=== PATIENT | female | born 1960 | race Caucasian/White ===

== ENCOUNTER → 2018-06-10 | Outpatient (CLI) | payer OTHER ==
[2018-06-10 13:29] LABS: HCT 44.7 % (34.0-46.0); HGB 15.1 gm/dL (11.4-16.0); MCH 30.5 pg (25.0-35.0); MCHC 33.7 g/dL (31.0-37.0); MCV 90.6 fL (80.0-100.0); Mean Platelet Volume 10.3; Platelet Count 162 k/uL (150-450); RBC 4.94 m/uL (3.80-5.40); RDW 12.9 % (11.5-15.5); WBC 8.5 k/uL (3.8-10.6)
[2018-06-10 13:37] LABS: Anion Gap 8 mmol/L; Blood Urea Nitrogen 20 mg/dL (7-17); Carbon Dioxide 28 mmol/L (22-30); Chloride 102 mmol/L (98-107); Potassium 4.7 mmol/L (3.5-5.1); Sodium 138 mmol/L (137-145)
== END | disposition home or self-care (01) ==
LOC: LABPAT 12:27
PROVIDERS: ATTEND Internal Medicine Interventional Cardiology
DX: Z01.812 Encounter for preprocedural laboratory examination (principal); I35.0 Nonrheumatic aortic (valve) stenosis
CPT/HCPCS: 36415; 80051; 82565; 84520; 85027

== ENCOUNTER 2018-06-16 05:40 | Day surgery (SDC) | payer OTHER ==
[2018-06-11 15:56] VITALS: BMI 31.9
[2018-06-16] MEDS ORDERED: ASPIRIN 325 MG TAB PO STA (05:47)
[2018-06-16] MEDS ORDERED: NITROGLYCERIN SL TABS 0.4 MG TAB SUBLINGUAL PRN (05:47)
[2018-06-16] MEDS ORDERED: SODIUM CHLORIDE 0.9% 1,000 ML in EMPTY BAG 1 BAG IV ONE (05:47)
[2018-06-16] MEDS ORDERED: ALPRAZolam 0.25 MG TAB PO PRN (05:47)
[2018-06-16 06:31] VITALS: TEMP 98.1
[2018-06-16] MEDS ORDERED: SODIUM CHLORIDE 0.9% 1,000 ML IV ONE ×3 (06:36→14:47)
[2018-06-16] MEDS ORDERED: fentaNYL (PF) 50 MCG/ML 2 ML AMP ONE (06:49)
[2018-06-16] MEDS ORDERED: MIDAZOLAM 2 MG/2 ML VIAL ONE (06:50)
[2018-06-16] MEDS ORDERED: SODIUM CHLORIDE 0.9% 500 ML IV ONE (07:05)
[2018-06-16] MEDS: BENZOCAINE SPRAY 1 CAN MUCOUS MEM ONE ×2 (07:10→07:13)
[2018-06-16] MEDS: fentaNYL (PF) 50 MCG/ML 2 ML AMP IVP ONE ×2 (07:12→07:15)
[2018-06-16] MEDS: MIDAZOLAM 2 MG/2 ML VIAL IVP ONE ×2 (07:12→07:15)
[2018-06-16] MEDS ORDERED: LIDOCAINE 1% INJ 10MG/ML (20 ML MDV) ONE (07:16)
--- NOTE | 2018-06-16 08:02 | ECHOT ---
TRANSESOPHAGEAL ECHOCARDIOGRAM INDICATION: Evaluation of aortic valve. PROCEDURE: After explaining the procedure to the patient, its risks and the complications, her blood pressure, heart rate, O2 saturation was monitored. The throat was sprayed with Cetacaine. She received 2 mg of intravenous Versed and 50 mcg intravenous fentanyl. The probe was introduced into the esophagus without difficulty. Images were obtained. Following that the probe was removed. There was no immediate complication. FINDINGS: Left atrial size is normal. Left atrial appendage is normal size. Left ventricular size and systolic function normal. The aortic valve is a probable tricuspid valve with severe fibrocalcific changes and calcification with reduced opening. By planimetry the valve area is 0.9 centimeters square. The mitral valve and tricuspid valve appear to be normal. Descending thoracic aorta appears to be normal. Contrast bubble study revealed no shunting across the interatrial septum with Valsalva maneuver. No pericardial effusion was noted. Doppler pulse wave and color Doppler obtained and revealed mild to moderate mitral with mild tricuspid regurgitation. There was inability to obtain an accurate measurement of the gradient across the aortic valve. CONCLUSION: 1. Normal left ventricular size and systolic function. 2. Severe aortic stenosis with severe calcification. 3. Mild to moderate mitral with mild tricuspid regurgitation. 4. Normal appearance of the descending thoracic aorta. 5. No evidence of shunting across the interatrial septum. MMODL / IJN: [id number] / LEROY
[2018-06-16] MEDS ORDERED: fentaNYL (PF) 50 MCG/ML 2 ML AMP IV ONE (12:49)
[2018-06-16] MEDS ORDERED: diphenhydrAMINE 50 MG/ML 1 ML VIAL IVP ONE (12:49)
[2018-06-16] MEDS ORDERED: LIDOCAINE 1% INJ 10MG/ML (20 ML MDV) SQ ONE (12:49)
[2018-06-16] MEDS ORDERED: IV FLUID CONTINUATION 300 ML IV ONE (12:50)
[2018-06-16] MEDS ORDERED: LIDOCAINE 2% SYG (PF) 100 MG/5 ML MISCELLANE ONE (12:52)
[2018-06-16] MEDS ORDERED: MIDAZOLAM 2 MG/2 ML VIAL IV ONE (12:54)
[2018-06-16 13:09] LABS: O2 Sat Blood Gas 92.4 %
[2018-06-16 13:11] LABS: O2 Sat Blood Gas 71.1 %
[2018-06-16 13:13] LABS: O2 Sat Blood Gas 71.5 %
[2018-06-16] MEDS ORDERED: IOPAMIDOL-370 100ML BTL INJ ONE (13:18)
[2018-06-16] MEDS ORDERED: IOPAMIDOL-370 125ML BTL INJ ONE (13:18)
[2018-06-16] MEDS ORDERED: RX INFO: IV CONTRAST WAS GIVEN 1 EACH MISC MISCELLANE PRN (13:33)
[2018-06-16] MEDS ORDERED: SODIUM CHLORIDE 0.9% 1,000 ML IV SCH (13:45)
--- NOTE | 2018-06-16 17:27 | CC ---
CARDIAC CATHETERIZATION REPORT Mrs. Huitron is a 58-year-old female who is followed by Dr. Goyal, has a history of aortic valve disease with aortic stenosis who has been complaining of progressive episodes of chest discomfort and had evidence of progression of her gradient on the transthoracic echocardiogram consistent with severe aortic stenosis. In view of that, recommendation was made regarding cardiac catheterization. The procedures, risks and complication were discussed with the patient who is in full understanding and agreement. PROCEDURE: Patient was brought to the labor relations representative in a fasting semi-sedated state after receiving fentanyl and Benadryl and achieving moderate conscious sedated state. Using Xylocaine anesthesia in the Seldinger technique, a 6-Lao sheath was introduced in the right femoral artery and an 8-Lao sheath in the right femoral vein. Right heart catheterization was performed using Warren-Murphy catheter. Multiple pressure and samples were obtained. Cardiac output by thermodilution was calculated. Following that, selective right and left angiography performed with 6-Lao 4 bend right and left Hany catheter. Multiple views of the coronary artery including hemiaxial views obtained. Following that the 6-Lao right Hany catheter was used to cross the aortic valve and exchanged to a pigtail catheter and subsequently in MENENDEZ view of the left ventricle and an FRISIAN view of the ascending aorta was performed. Following that catheter and sheaths were removed. Hemostasis was obtained with deployment of an Angio- Seal in the right femoral artery and compression of the right femoral vein. The patient was returned to room in stable condition. FINDINGS: HEMODYNAMICS: Right atrial saturation 72%, pulmonary artery saturation 71%. Femoral artery saturation of 92%. Cardiac output by thermodilution 3.7 L/minute and by Miguel 4.1 L/minute. The aortic valve area of 0.8 cm2. The pulmonary artery systolic pressure 44 with a diastolic of 14 and a mean of 25 mmHg. Pulmonary capillary wedge pressure A-wave of 16, V-wave of 15 with a mean of 14 mmHg. Right ventricle systolic pressure of 45 with an end-diastolic off 8. Right atrial A-wave of 12 with a V-wave of 10 mmHg and a mean of 9 mmHg. Her left ventricular systolic pressure off 200 mmHg with a left ventricular end-diastolic pressure off 20-24 mmHg. Ascending aortic pressure of 155 to 160 mmHg with a peak gradient of 40 mmHg. FLUOROSCOPY: There was severe calcification involving the aortic valve. CORONARIES: The left Main: This is a large-sized vessel trifurcating left circumflex, left anterior descending artery and ramus intermedius. Left main coronary artery has no evidence of high-grade stenosis. Left Anterior Descending Artery: This is a large-sized vessel reaching to the apex with a wraparound apex segment. The left anterior descending artery has 40% to 50% plaque in the mid segment. The rest of the vessel has no high-grade stenosis. Left Circumflex: This is a nondominant vessel giving rise to 2 obtuse marginal branch. The left circumflex this was branches have no evidence of obstructive disease. Ramus Intermedius: This is a large-sized vessel reaching toward the apical lateral wall. The ramus intermedius has no evidence of high-grade stenosis. Right Coronary Artery: This is a large dominant vessel bifurcating into PDA and posterolateral segment and branches. The right coronary artery as well as branches have no evidence of obstructive disease. Left Ventriculogram: Left ventriculogram is performed in 30 degree MENENDEZ view and revealed normal left ventricular size and systolic function. Ejection fraction 60%. There was no significant mitral regurgitation. AORTOGRAM: Aortogram was performed in the FRISIAN view and revealed a calcified aortic valve with 1+ aortic regurgitation and the appearance of a tricuspid valve. CONCLUSION: 1. Mild disease involving the LAD. 2. Severe critical aortic stenosis. 3. Mild pulmonary hypertension. 4. Normal left ventricular size and systolic function. 5. Normal appearance of the ascending aorta. RECOMMENDATION: In view of finding anatomy I recommend proceeding with evaluation for aortic valve replacement. The rationale behind the recommendation as well as the findings were discussed with the patient and her family who are in understanding and agreement. Duration procedure is 32 minutes. MMODL / IJN: [id number] /
[2018-06-16 19:20] VITALS: RESP 16
[2018-06-16 19:22] VITALS: BP 128/71; PULSE 65
[2018-06-17] MEDS ORDERED: ASPIRIN 81 MG PO SCH (09:00)
[2018-06-17] MEDS ORDERED: ATORVASTATIN 20 MG TAB PO SCH (09:00)
== END 2018-06-16 20:21 | disposition home or self-care (01) ==
LOC: CATHCVL 05:40 → 3OBS 13:20 → CATHCVL 20:21
PROVIDERS: ATTEND Internal Medicine Interventional Cardiology
DX: I08.3 Combined rheumatic disorders of mitral, aortic and tricuspid valves (principal); I25.10 Atherosclerotic heart disease of native coronary artery without angina pectoris; I27.20 Pulmonary hypertension, unspecified; I65.29 Occlusion and stenosis of unspecified carotid artery; D69.3 Immune thrombocytopenic purpura; Z82.49 Family history of ischemic heart disease and other diseases of the circulatory system; Z79.899 Other long term (current) drug therapy; Z88.6 Allergy status to analgesic agent; Z88.1 Allergy status to other antibiotic agents; Z88.0 Allergy status to penicillin; Z88.2 Allergy status to sulfonamides; Z88.8 Allergy status to other drugs, medicaments and biological substances
CPT/HCPCS: 93312; 93320; 93325; 93453; 85018; 82810; C1769 ×3; C1760; C1894 ×2; J2250; J1200; J2001 ×2; J3010; Q9967 ×2; 93460

== ENCOUNTER 2018-09-01 02:58 | Emergency (ER) | payer OTHER ==
[2018-09-01 03:05] VITALS: TEMP 97.5
[2018-09-01 04:02] LABS: Basophils # (A) 0.1 k/uL (0-0.2); Basophils % (A) 1 %; Eosinophils # (A) 0.2 k/uL (0-0.7); Eosinophils % (A) 1 %; HCT 35.7 % (34.0-46.0); HGB 11.7 gm/dL (11.4-16.0); Hypochromasia Slight; Lymphocytes # (A) 1.7 k/uL (1.0-4.8); Lymphocytes % (A) 16 %; MCH 30.8 pg (25.0-35.0); MCHC 32.7 g/dL (31.0-37.0); MCV 94.5 fL (80.0-100.0); Mean Platelet Volume 9.8; Monocytes # (A) 0.5 k/uL (0-1.0); Monocytes % (A) 5 %; Neutrophils # (A) 8.2 k/uL (1.3-7.7); Neutrophils % (A) 76 %; Platelet Count 177 k/uL (150-450); Poikilocytosis Slight; RBC 3.78 m/uL (3.80-5.40); WBC 10.8 k/uL (3.8-10.6)
[2018-09-01 04:24] LABS: INR 1.2 (<1.2); Partial Thromboplastin Time 23.7 sec (22.0-30.0); Prothrombin Time 11.3 sec (9.0-12.0)
--- NOTE | 2018-09-01 04:24 | XR ---
PROCEDURE: FILM CXR 1 VIEW HISTORY: 58-year-old female with chest pain. COMPARISON: Chest radiograph 04/19/2015 TECHNIQUE: Frontal view of the chest was obtained. FINDINGS: Limited by technique. Cardiomediastinal silhouette is stable. Right pleural effusion. Right basilar atelectasis/consolidation. Bilateral perihilar platelike atelectasis. Postoperative changes of median sternotomy. Degenerative changes in the spine. IMPRESSION: Right pleural effusion. Right basilar atelectasis/consolidation.
[2018-09-01 04:25] LABS: ALT 81 U/L (9-52); AST 63 U/L (14-36); Albumin 3.4 g/dL (3.5-5.0); Alkaline Phosphatase 130 U/L (38-126); Anion Gap 10 mmol/L; Blood Urea Nitrogen 21 mg/dL (7-17); Calcium 9.1 mg/dL (8.4-10.2); Carbon Dioxide 22 mmol/L (22-30); Chloride 102 mmol/L (98-107); Glucose 161 mg/dL (74-99); Magnesium 2.1 mg/dL (1.6-2.3); Potassium 4.7 mmol/L (3.5-5.1); Sodium 134 mmol/L (137-145); Total Bilirubin 0.5 mg/dL (0.2-1.3); Total Protein 6.3 g/dL (6.3-8.2)
[2018-09-01 04:34] LABS: Creatine Kinase MB 0.3 ng/mL (0.0-2.4)
[2018-09-01 04:47] LABS: Troponin I 0.058 ng/mL (0.000-0.034)
[2018-09-01] MEDS ORDERED: ENOXAPARIN 80 MG/0.8 ML SYRINGE SQ STA (06:31)
--- NOTE | 2018-09-01 07:28 | ED ---
Chest Pain HPI - General Chief Complaint: Chest Pain Stated Complaint: Chest Pain Time Seen by Provider: 09/01/18 03:24 Source: patient, EMS Mode of arrival: EMS Limitations: no limitations - History of Present Illness Initial Comments: This patient is a 58-year-old woman who did have recent open-heart surgery with Dr. Cardona, presents to be evaluated for pain to the posterior aspect of her left arm. The patient indicates the area of the left tricep, and does note that there is a bruise there, but she does not remember any trauma. She states that given the recent surgery she wanted to be extra cautious. She is not having any dyspnea, nausea or vomiting, or other anginal symptoms. MD Complaint: other (left arm pain) -: minutes(s) Onset: during rest Pain Location: other (Left arm pain) Pain Radiation: none Quality: dull Consistency: constant Improves With: nothing Worsens With: nothing Context: recent surgery Treatments Prior to Arrival: none - Related Data Home Medications Medication Instructions Recorded Confirmed No Known Home Medications 06/11/18 06/11/18 Allergies Allergy/AdvReac Type Severity Reaction Status Date / Time cephalexin [Cephalexin] Allergy Rash/Hives Verified 09/01/18 03:05 erythromycin base Allergy Rash/Hives Verified 09/01/18 03:05 methylprednisolone Allergy Rash/Hives Verified 09/01/18 03:05 [From Medrol] Sulfa (Sulfonamide Allergy Rash/Hives Verified 09/01/18 03:05 Antibiotics) sulfamethoxazole Allergy Rash/Hives Verified 09/01/18 03:05 [From Bactrim] trimethoprim [From Bactrim] Allergy Rash/Hives Verified 09/01/18 03:05 aspirin AdvReac HX LOW Verified 09/01/18 03:05 PLATELETS Review of Systems ROS Statement: Those systems with pertinent positive or pertinent negative responses have been documented in the HPI. ROS Other: All systems not noted in ROS Statement are negative. Constitutional: Denies: fever, chills, weakness Respiratory: Denies: cough, dyspnea Cardiovascular: Reports: as per HPI. Denies: chest pain, palpitations, orthopnea, edema, syncope Genitourinary: Denies: dysuria, hematuria Musculoskeletal: Denies: back pain Skin: Denies: rash, lesions Neurological: Denies: headache, weakness, numbness EKG Findings - EKG Results: EKG: interpreted by IGNACIO, sinus rhythm (Rate 64 bpm), normal axis, normal QRS, normal ST/T, no acute changes Past Medical History Past Medical History: Atrial Fibrillation Additional Past Medical History / Comment(s): THROMBOCYTOPENIA History of Any Multi-Drug Resistant Organisms: None Reported Past Surgical History: Coronary Bypass/CABG, Heart Catheterization Additional Past Surgical History / Comment(s): RT SHOULDER ROT CUFF REPAIR AND MANIPULATION SURGERY OF RT SHOULDER, HX OF CLARA, MELECIO CARPAL TUNNEL, Past Anesthesia/Blood Transfusion Reactions: Motion Sickness Additional Past Anesthesia/Blood Transfusion Reaction / Comment(s): STATES "TAKES A LONG TIME TO WAKE UP FROM ANESTHESIA" Past Psychological History: No Psychological Hx Reported Smoking Status: Never smoker Past Alcohol Use History: None Reported Past Drug Use History: None Reported - Past Family History Father Family Medical History: Cancer Additional Family Medical History / Comment(s): SKIN CA General Exam Limitations: no limitations General appearance: alert, in no apparent distress Head exam: Present: atraumatic, normocephalic Eye exam: Present: normal appearance. Absent: scleral icterus, conjunctival injection Neck exam: Present: normal inspection, full ROM Respiratory exam: Present: normal lung sounds bilaterally. Absent: respiratory distress, wheezes, rales, rhonchi, stridor Cardiovascular Exam: Present: regular rate, normal rhythm, normal heart sounds. Absent: systolic murmur, diastolic murmur, rubs, gallop GI/Abdominal exam: Present: soft. Absent: distended, tenderness, guarding, rebound, rigid Extremities exam: Present: full ROM, tenderness (Patient does have contusion and tenderness to the area of the left tricep where she is indicating pain is), normal capillary refill. Absent: pedal edema Back exam: Present: normal inspection. Absent: CVA tenderness (R), CVA tenderness (L) Neurological exam: Present: alert Skin exam: Present: warm, dry, intact, normal color, other (Decision). Absent: rash Course Vital Signs 09/01/18 09/01/18 09/01/18 03:00 04:44 05:39 Temperature 97.5 F L Pulse Rate 64 62 63 Respiratory 20 17 18 Rate Blood Pressure 118/53 107/54 104/52 O2 Sat by Pulse 96 98 95 Oximetry 09/01/18 09/01/18 07:02 08:42 Temperature Pulse Rate 66 81 Respiratory 18 16 Rate Blood Pressure 111/57 124/66 O2 Sat by Pulse 95 98 Oximetry Chest Pain MDM - MDM I did discuss the case with Dr. Cardona's service and they will see the patient here in emergency department. Disposition Clinical Impression: Contusion Disposition: HOME SELF-CARE Condition: Good Instructions: Chest Pain (ED), Contusion in Adults (ED) Is patient prescribed a controlled substance at d/c from ED?: No Referrals: Clara Chavez III, MD [Primary Care Provider] - 1-2 days Scooter Cardona MD [STAFF PHYSICIAN] - 1-2 days
[2018-09-01 08:43] VITALS: BP 124/66; PULSE 81; RESP 16
== END 2018-09-01 08:42 | disposition home or self-care (01) ==
LOC: EC 02:58
DX: L76.82 Other postprocedural complications of skin and subcutaneous tissue (principal); I48.91 Unspecified atrial fibrillation; Z53.8 Procedure and treatment not carried out for other reasons; Z88.6 Allergy status to analgesic agent; Z88.1 Allergy status to other antibiotic agents; Z88.2 Allergy status to sulfonamides; Z88.8 Allergy status to other drugs, medicaments and biological substances; Z95.5 Presence of coronary angioplasty implant and graft; Z95.1 Presence of aortocoronary bypass graft; Y83.8 Other surgical procedures as the cause of abnormal reaction of the patient, or of later complication, without mention of misadventure at the time of the procedure
CPT/HCPCS: 36415; 71045; 80053; 82550; 82553; 83735; 84484; 85025; 85610; 85730; 93005; 99285

== ENCOUNTER → 2018-09-08 | Outpatient (CLI) | payer OTHER ==
--- NOTE | 2018-09-08 09:44 | US ---
EXAMINATION TYPE: US abdomen complete DATE OF EXAM: 09/08/2018 COMPARISON: NONE CLINICAL HISTORY: R10.9 Abdominal Pain. Pt recently had CABG, is now having generalized ABD pain all over, loss of appetite EXAM MEASUREMENTS: Liver Length: 17.1 cm Gallbladder Wall: 0.2 cm CBD: 0.6 cm Spleen: 10.3 cm Right Kidney: 11.1 x 4.5 x 4.8 cm Left Kidney: 11.3 x 5.6 x 5.0 cm Limited scan pt unable to roll on sides, pt unable to tolerate much probe pressure, also unable to take a breath in and hold it Pancreas: wnl, tail obscured by overlying bowel gas Liver: There is increased echogenicity of the hepatic parenchyma with diminished visualization of th e portal triads most commonly relating to hepatic steatosis and limiting evaluation for underlying he patic masses. Gallbladder: wnl Evidence for sonographic Maldonado's sign: Pt having pain during entire exam CBD: Upper limits of normal Spleen: wnl Right Kidney: Mild cortical thinning Left Kidney: Mild cortical thinning Upper IVC: wnl Abd Aorta: wnl, distal portion gassed out PLEASE NOTE: Midline, right superficial ABD area scanned where pt is having most of her pain, no ab normality could be appreciated The intrahepatic portion of the IVC and proximal abdominal aorta are within normal limits. There is no evidence of cholelithiasis. Common bile duct is unremarkable. The visualized portions of the vee creas are homogenous. The spleen is unremarkable. Kidneys are symmetric and free of hydronephrosis. No renal lesions are seen. IMPRESSION: 1. No sonographic evidence of acute cholecystitis or cholelithiasis. No superficial abnormality in th e patient's stated region of abdominal pain. 2. Sonographic findings most commonly related to hepatic steatosis. 3. Bilateral cortical renal thinning suggestive of medical renal disease.
== END | disposition home or self-care (01) ==
LOC: RADUSWWP 07:56
PROVIDERS: ATTEND Family Medicine
DX: N28.89 Other specified disorders of kidney and ureter (principal)
CPT/HCPCS: 76700

== ENCOUNTER → 2018-10-11 | Outpatient (CLI) | payer OTHER ==
--- NOTE | 2018-10-12 15:16 | XR ---
Left humerus HISTORY: Trauma and pain 2 views of the left humerus correlated to prior left elbow 12/16/2013 Metaphyseal excrescence laterally at the distal humerus shows a stable appearance. Alignment, bone mi neralization, joint spaces are maintained. IMPRESSION: No acute fracture or dislocation. 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
== END ==
LOC: RADXRMAIN 17:32
PROVIDERS: ATTEND Nurse Practitioner Family
DX: M79.602 Pain in left arm (principal)

== ENCOUNTER → 2018-10-11 | Outpatient (CLI) | payer OTHER ==
--- NOTE | 2018-10-11 09:07 | US ---
EXAMINATION TYPE: US venous doppler duplex UE LT DATE OF EXAM: 10/11/2018 COMPARISON: NONE CLINICAL HISTORY: M76.602 Pain in Left arm. SIDE PERFORMED: Left Left Arm: Negative for DVT At the patient's area of pain, posterior left upper arm, there is a non-vascular, hyperechoic area vi sualized measuring 1.2 x 0.8 x 1.0 cm IMPRESSION: 1. No diagnostic evidence of DVT 2. The area of reported pain there is a hyperechoic 1.2 x 1.0 cm lesion too small to characterize. Ma y be related to a either a fatty replaced lymph node or small lipoma, other etiologies not excluded c orrelate clinically. This could be correlated with CT or MRI as clinically warranted.
== END | disposition home or self-care (01) ==
LOC: RADUSMAIN 07:31
PROVIDERS: ATTEND Family Medicine
DX: M79.602 Pain in left arm (principal)

== ENCOUNTER 2018-11-04 05:25 | Day surgery (SDC) | payer OTHER ==
[2018-11-02 09:30] VITALS: BMI 32.1
[~2018-11-04 05:25] MED LIST: CLINDAMYCIN 900 MG in DEXTROSE 5% IN WATER 50 ML IVPB ONE; HYDROmorphone 0.5 MG/0.5 ML SYRINGE IVP PRN; LACTATED RINGERS 1,000 ML IV SCH; MORPHINE SULFATE 2 MG/ML SYRINGE IV PRN
[2018-11-04] MEDS ORDERED: ONDANSETRON 4 MG/2 ML VIAL IVP ONE (06:30)
[2018-11-04 06:37] VITALS: TEMP 97.8
[2018-11-04] MEDS ORDERED: LIDOCAINE 1% 20 ML VIAL (10MG/ML) FOR IV START INTRADERMA ONE (06:37)
[2018-11-04] MEDS ORDERED: PROPOFOL 10 MG/ML 20 ML VIAL IV ONE (07:26)
[2018-11-04] MEDS ORDERED: MIDAZOLAM 2 MG/2 ML VIAL ONE (07:26)
[2018-11-04] MEDS ORDERED: fentaNYL (PF) 50 MCG/ML 2 ML AMP ONE (07:26)
[2018-11-04] MEDS ORDERED: BUPIVACAINE (PF) 0.25% 30 ML VIAL SQ ONE ×2 (07:39)
[2018-11-04 08:22] VITALS: BP 113/72; PULSE 60; RESP 16
== END 2018-11-04 08:45 | disposition home or self-care (01) ==
LOC: OR 05:25
PROVIDERS: ATTEND Thoracic Surgery (Cardiothoracic Vascular Surgery)
DX: T82.847A Pain due to cardiac prosthetic devices, implants and grafts, initial encounter (principal); Z95.1 Presence of aortocoronary bypass graft; I10 Essential (primary) hypertension; E78.5 Hyperlipidemia, unspecified; Z79.82 Long term (current) use of aspirin; Z79.899 Other long term (current) drug therapy; Z88.2 Allergy status to sulfonamides; Z88.1 Allergy status to other antibiotic agents; Z91.040 Latex allergy status
CPT/HCPCS: 33234; J2250; J2405; J3010; J2704

== ENCOUNTER → 2018-11-11 | Outpatient (CLI) | payer OTHER ==
--- NOTE | 2018-11-04 08:34 | P.OP ---
Date of Procedure: 11/04/18 Preoperative Diagnosis: Irritation from retained temporary pacing wire status post heart valve surgery Postoperative Diagnosis: Same with Procedure(s) Performed: Removal of temporary pacing wire Anesthesia: MAC Surgeon: Scooter Cardona Estimated Blood Loss (ml): 20 IV fluids (ml): 200 Pathology: other (Temporary pacing wire) Condition: stable Disposition: PACU Indications for Procedure: Patient is 58-year-old female who is status post valve surgery. She presents with complaints of irritation from a subcutaneous poking in the right upper quadrant of the abdomen. This is at the site of a previous temporary pacing wire. Temporary pacing wire is palpable under the skin. There is no overlying skin redness and irritation or evidence of infection. Removal was recommended. Operative Findings: Single temporary pacing wire was encountered and removed in its entirety. Description of Procedure: Patient was placed supine on the operating table. IV sedation was given. The right upper quadrant was sterilely prepped and draped. Quarter percent Sensorcaine was used to anesthetize the skin and underlying subcutaneous tissues at the area of the irritation. Incision was made and carried down through skin and subcutaneous tissue. A temporary pacemaker was easily found and removed in its entirety. Further exploration did not reveal any further foreign body present. Bleeding was not significant. The incision was closed with 4-0 Vicryl. Skin glue dressing was applied. Patient was transferred to recovery in stable condition.
[2018-11-11 12:10] LABS: Blood Urea Nitrogen 18 mg/dL (7-17)
--- NOTE | 2018-11-12 00:29 | MR ---
EXAMINATION TYPE: MR humerus LT wo/w con DATE OF EXAM: 11/11/2018 COMPARISON: None HISTORY: Localized swelling/mass, left distal humerus CONTRAST: Standard multiplanar, multisequence MRI departmental protocol utilizing 7 mL intravenous Gadavist sun olinium contrast. FINDINGS: There is no evidence of a fracture. This has fairly normal signal pattern without evidence of bone edema. There is no evidence of a soft tissue mass. There is a moderate shoulder joint effusion. There is fluid around the biceps tendon. The elbow joint has fairly normal signal pattern without evidence of any significant joint fluid. Triceps tendon is intact. The biceps tendon is intact. There appears to be a rotator cuff tear with partial retraction of the supraspinatus tendon. Shoulder joint is not entirely included on the exam. There is a marker placed over the posterior lower humerus between the middle and distal thirds in the area of concern. No discrete mass is identified. Subcutaneous fat has normal signal pattern. There i s no evidence of a mass within the muscles. IMPRESSION: No evidence of a soft tissue mass in the lower region of the humerus that was the area of concern. There is moderate shoulder joint effusion and probable large rotator cuff tear. Fluid consistent with synovitis.
== END | disposition home or self-care (01) ==
LOC: RADMRIMAIN 11:27
PROVIDERS: ATTEND Family Medicine
DX: M25.412 Effusion, left shoulder (principal)
CPT/HCPCS: 82565; 84520; 73220; 36415; A9585

== ENCOUNTER 2019-10-05 13:46 | Emergency (ER) | payer OTHER ==
[2019-10-05 13:50] VITALS: TEMP 97.4
[2019-10-05] MEDS ORDERED: PANTOPRAZOLE 40 MG/10 ML VIAL IVP STA (14:45)
[2019-10-05] MEDS ORDERED: ONDANSETRON 4 MG/2 ML VIAL IVP STA (14:45)
[2019-10-05] MEDS ORDERED: SODIUM CHLORIDE 0.9% 1,000 ML IV STA ×2 (14:45)
[2019-10-05] MEDS ORDERED: MORPHINE SULFATE 4 MG/ML SYRINGE IVP STA (15:07)
[2019-10-05 15:33] LABS: Appearance,Urine Clear (Clear); Bilirubin,Urine Negative (Negative); Blood,Urine Negative (Negative); Color,Urine Light Yellow; Glucose,Urine (UA) Negative (Negative); Ketones,Urine Negative (Negative); Leukocyte Esterase,Urine Negative (Negative); Nitrite,Urine Negative (Negative); Protein,Urine Negative (Negative); Specific Gravity,Urine 1.006 (1.001-1.035); Urobilinogen,Urine <2.0 mg/dL (<2.0)
[2019-10-05 15:39] LABS: ALT 27 U/L (9-52); AST 24 U/L (14-36); African American GFR (CKD) >90 (>60 ml/min/1.73 sqM); Albumin 4.4 g/dL (3.5-5.0); Alkaline Phosphatase 89 U/L (38-126); Amylase 66 U/L (30-110); Anion Gap 9 mmol/L; Blood Urea Nitrogen 19 mg/dL (7-17); Calcium 9.8 mg/dL (8.4-10.2); Carbon Dioxide 30 mmol/L (22-30); Chloride 102 mmol/L (98-107); Glucose 131 mg/dL (74-99); Potassium 3.9 mmol/L (3.5-5.1); Sodium 141 mmol/L (137-145); Total Bilirubin 0.6 mg/dL (0.2-1.3); Total Protein 7.2 g/dL (6.3-8.2)
--- NOTE | 2019-10-05 15:39 | ED ---
Abdominal Pain HPI - General Chief Complaint: Abdominal Pain Stated Complaint: abdominal pain Time Seen by Provider: 10/05/19 14:32 Source: patient, RN notes reviewed, old records reviewed Mode of arrival: ambulatory Limitations: no limitations - History of Present Illness Initial Comments: She has a fixed mineral female presents today for left-sided abdominal pain. She reports some intermittent abdominal pain since she had an abnormal way are within her abdomen from a cardiac surgery she reports she had the wire Mob[place] she's had intermittent pain since that time. Patient states that she hasn't had pain like this in the past 2 months. She denies any fevers or chills changes in urination or bowel habits P she denies any chest pain or shortness of breath.Patient denies any recent fever, chills, shortness of breath, chest pain, back pain, nausea vomiting, numbness or tingling, dysuria or hematuria, constipation or diarrhea, headaches or visual changes, or any other current symptoms - Related Data Home Medications Medication Instructions Recorded Confirmed Aspirin [Adult Low Dose Aspirin EC] 81 mg PO DAILY 11/02/18 11/02/18 Atorvastatin [Lipitor] 20 mg PO HS 11/02/18 11/02/18 Lisinopril [Zestril] 5 mg PO HS 11/02/18 11/02/18 Metoprolol Tartrate [Lopressor] 50 mg PO BID 11/02/18 11/02/18 Allergies Allergy/AdvReac Type Severity Reaction Status Date / Time cephalexin [Cephalexin] Allergy Rash/Hives Verified 10/05/19 13:50 erythromycin base Allergy Rash/Hives Verified 10/05/19 13:50 latex Allergy Rash/Hives Verified 10/05/19 13:50 methylprednisolone Allergy Rash/Hives Verified 10/05/19 13:50 [From Medrol] Sulfa (Sulfonamide Allergy Rash/Hives Verified 10/05/19 13:50 Antibiotics) sulfamethoxazole Allergy Rash/Hives Verified 10/05/19 13:50 [From Bactrim] trimethoprim [From Bactrim] Allergy Rash/Hives Verified 10/05/19 13:50 Review of Systems ROS Statement: Those systems with pertinent positive or pertinent negative responses have been documented in the HPI. ROS Other: All systems not noted in ROS Statement are negative. Past Medical History Past Medical History: Atrial Fibrillation Additional Past Medical History / Comment(s): THROMBOCYTOPENIA History of Any Multi-Drug Resistant Organisms: None Reported Past Surgical History: Coronary Bypass/CABG, Heart Catheterization Additional Past Surgical History / Comment(s): RT SHOULDER ROT CUFF REPAIR AND MANIPULATION SURGERY OF RT SHOULDER, HX OF CLARA, MELECIO CARPAL TUNNEL,exp lap Past Anesthesia/Blood Transfusion Reactions: Motion Sickness Additional Past Anesthesia/Blood Transfusion Reaction / Comment(s): STATES "TAKES A LONG TIME TO WAKE UP FROM ANESTHESIA" Past Psychological History: No Psychological Hx Reported Smoking Status: Never smoker Past Alcohol Use History: None Reported Past Drug Use History: None Reported - Past Family History Father Family Medical History: Cancer Additional Family Medical History / Comment(s): SKIN CA General Exam - General Exam Comments Initial Comments: Well-appearing alert and oriented 59-year-old female. No distress. General: Well appearing, well nourished, in no distress. Oriented x 3, normal mood and affect . Ambulating without difficulty. Skin: Good turgor, no rash, unusual bruising or prominent lesions Hair: Normal texture and distribution. HEENT: Head: Normocephalic, atraumatic, no visible or palpable masses, depressions, or scaring. Eyes: Visual acuity intact, conjunctiva clear, sclera non-icteric, EOM intact, PERRL. Ears: EACs clear, TMs translucent & cone of light visualized. hearing intact. Nose: No external lesions, mucosa non-inflamed, septum and turbinates normal Mouth: Mucous membranes moist, no mucosal lesions. Teeth/Gums: No obvious caries or periodontal disease. No gingival inflammation or significant resorption. Pharynx: Mucosa non-inflamed, no tonsillar hypertrophy or exudate Neck: Supple, without lesions, bruits, or adenopathy, thyroid non-enlarged and non-tender Heart: No cardiomegaly or thrills; regular rate and rhythm, no murmur or gallop Lungs: Clear to auscultation and percussion, scar from open heart surgery noted. Abdomen: Bowel sounds normal, left upper quadrant left lower quadrant tenderness. Extremities: No amputations or deformities, cyanosis, edema or varicosities, peripheral pulses intact Musculoskeletal: Normal gait and station. No misalignment, asymmetry, crepitation, defects, tenderness, masses, effusions, decreased range of motion, instability, atrophy or abnormal strength or tone in the head, neck, spine, ribs, pelvis or extremities. Neurologic: CN 2-12 normal. Sensation to pain, touch, and proprioception normal. DTRs normal in upper and lower extremities. No pathologic reflexes. Psychiatric: Oriented X3, intact recent and remote memory, judgment and insight, normal mood and affect. Limitations: no limitations Course Vital Signs 10/05/19 10/05/19 10/05/19 13:47 15:56 17:59 Temperature 97.4 F L Pulse Rate 65 56 L 67 Respiratory 20 16 20 Rate Blood Pressure 145/65 152/65 114/48 O2 Sat by Pulse 100 100 98 Oximetry Medical Decision Making - Medical Decision Making Is a 5-year-old female presents today for left-sided abdominal pain, worse for the past 3 months. At this time patient's labs are within normal limits besides platelets. EKG is normal, trop is normal. Discussed with persistent pain can check further testing including CAT scan she's had some history of chronic abdominal pain with no significant results from ultrasound other testing. Patient had CT which shows no acute process. Labs did show some mild signs of pharmacy albino. She states this is chronic and she is well aware of this. Discussed she can repeat his labs with a primary care doctor. I discussed the Patient needs to follow-up with her primary care physician. Return parameters were discussed. - Lab Data Result diagrams: 10/05/19 15:21 10/05/19 15:21 Lab Results 10/05/19 10/05/19 10/05/19 Range/Units 15:21 15:21 15:21 WBC 4.7 (3.8-10.6) k/uL RBC 4.89 (3.80-5.40) m/uL Hgb 15.1 (11.4-16.0) gm/dL Hct 43.7 (34.0-46.0) % MCV 89.2 (80.0-100.0) fL MCH 30.9 (25.0-35.0) pg MCHC 34.6 (31.0-37.0) g/dL RDW 12.3 (11.5-15.5) % Plt Count 98 L (150-450) k/uL Neutrophils % 56 % Lymphocytes % 32 % Monocytes % 6 % Eosinophils % 3 % Basophils % 1 % Neutrophils # 2.6 (1.3-7.7) k/uL Lymphocytes # 1.5 (1.0-4.8) k/uL Monocytes # 0.3 (0-1.0) k/uL Eosinophils # 0.1 (0-0.7) k/uL Basophils # 0.0 (0-0.2) k/uL Sodium 141 (137-145) mmol/L Potassium 3.9 (3.5-5.1) mmol/L Chloride 102 (98-107) mmol/L Carbon Dioxide 30 (22-30) mmol/L Anion Gap 9 mmol/L BUN 19 H (7-17) mg/dL Creatinine 0.66 (0.52-1.04) mg/dL Est GFR (CKD-EPI)AfAm >90 (>60 ml/min/1.73 sqM) Est GFR (CKD-EPI)NonAf >90 (>60 ml/min/1.73 sqM) Glucose 131 H (74-99) mg/dL Calcium 9.8 (8.4-10.2) mg/dL Total Bilirubin 0.6 (0.2-1.3) mg/dL AST 24 (14-36) U/L ALT 27 (9-52) U/L Alkaline Phosphatase 89 (38-126) U/L Troponin I (0.000-0.034) ng/mL Total Protein 7.2 (6.3-8.2) g/dL Albumin 4.4 (3.5-5.0) g/dL Amylase 66 (30-110) U/L Lipase 136 (23-300) U/L Urine Color Light Yellow Urine Appearance Clear (Clear) Urine pH 5.0 (5.0-8.0) Ur Specific [place] 1.006 (1.001-1.035) Urine Protein Negative (Negative) Urine Glucose (UA) Negative (Negative) Urine Ketones Negative (Negative) Urine Blood Negative (Negative) Urine Nitrite Negative (Negative) Urine Bilirubin Negative (Negative) Urine Urobilinogen <2.0 (<2.0) mg/dL Ur Leukocyte Esterase Negative (Negative) 10/05/19 Range/Units 15:21 WBC (3.8-10.6) k/uL RBC (3.80-5.40) m/uL Hgb (11.4-16.0) gm/dL Hct (34.0-46.0) % MCV (80.0-100.0) fL MCH (25.0-35.0) pg MCHC (31.0-37.0) g/dL RDW (11.5-15.5) % Plt Count (150-450) k/uL Neutrophils % % Lymphocytes % % Monocytes % % Eosinophils % % Basophils % % Neutrophils # (1.3-7.7) k/uL Lymphocytes # (1.0-4.8) k/uL Monocytes # (0-1.0) k/uL Eosinophils # (0-0.7) k/uL Basophils # (0-0.2) k/uL Sodium (137-145) mmol/L Potassium (3.5-5.1) mmol/L Chloride (98-107) mmol/L Carbon Dioxide (22-30) mmol/L Anion Gap mmol/L BUN (7-17) mg/dL Creatinine (0.52-1.04) mg/dL Est GFR (CKD-EPI)AfAm (>60 ml/min/1.73 sqM) Est GFR (CKD-EPI)NonAf (>60 ml/min/1.73 sqM) Glucose (74-99) mg/dL Calcium (8.4-10.2) mg/dL Total Bilirubin (0.2-1.3) mg/dL AST (14-36) U/L ALT (9-52) U/L Alkaline Phosphatase (38-126) U/L Troponin I <0.012 (0.000-0.034) ng/mL Total Protein (6.3-8.2) g/dL Albumin (3.5-5.0) g/dL Amylase (30-110) U/L Lipase (23-300) U/L Urine Color Urine Appearance (Clear) Urine pH (5.0-8.0) Ur Specific [place] (1.001-1.035) Urine Protein (Negative) Urine Glucose (UA) (Negative) Urine Ketones (Negative) Urine Blood (Negative) Urine Nitrite (Negative) Urine Bilirubin (Negative) Urine Urobilinogen (<2.0) mg/dL Ur Leukocyte Esterase (Negative) 10/05/19 17:19 EKG shows sinus rhythm, nonspecific ST and T-wave abnormality. Ventricular rate 61 bpm. Intervals 1:30 milliseconds. QRS duration 74 ms. QT QTc is 592/595 ms. - Radiology Data Radiology results: report reviewed CT is negative for any acute process.CT abdomen and pelvis shows no acute process noted. Objective bowel gas pattern. Incidentally noted hepatomegaly. Disposition Clinical Impression: Left sided abdominal pain Disposition: HOME SELF-CARE Condition: Good Instructions (If sedation given, give patient instructions): Abdominal Pain (ED) Additional Instructions: Follow-up with your primary care doctor within the next 1-2 days. Recommend rechecking platelets.. Recommended a bland diet, avoid any greasy fatty foods. Return to the emergency department if any alarming signs or symptoms occur. Is patient prescribed a controlled substance at d/c from ED?: No Referrals: Clara Chavez III, MD [Primary Care Provider] - 1-2 days Time of Disposition: 17:29
[2019-10-05 15:42] LABS: Basophils % (A) 1 %; Eosinophils # (A) 0.1 k/uL (0-0.7); Eosinophils % (A) 3 %; HCT 43.7 % (34.0-46.0); HGB 15.1 gm/dL (11.4-16.0); Lymphocytes # (A) 1.5 k/uL (1.0-4.8); Lymphocytes % (A) 32 %; MCH 30.9 pg (25.0-35.0); MCHC 34.6 g/dL (31.0-37.0); MCV 89.2 fL (80.0-100.0); Mean Platelet Volume 10.8; Monocytes # (A) 0.3 k/uL (0-1.0); Monocytes % (A) 6 %; Neutrophils # (A) 2.6 k/uL (1.3-7.7); Neutrophils % (A) 56 %; RBC 4.89 m/uL (3.80-5.40); RDW 12.3 % (11.5-15.5); WBC 4.7 k/uL (3.8-10.6)
[2019-10-05 15:57] LABS: Platelet Count 98 k/uL (150-450)
--- NOTE | 2019-10-05 15:57 | XR ---
EXAMINATION TYPE: XR KUB DATE OF EXAM: 10/05/2019 3:50 PM CLINICAL HISTORY: Left-sided abdominal pain TECHNIQUE: Single supine KUB image of the abdomen is obtained. COMPARISON: None. FINDINGS: Numerous epicardial pacing leads are incidentally seen with postoperative changes of the ch est and cardiac cranioplasty. Lung bases are well aerated. Visualized cardiomediastinal silhouette is mildly enlarged. There is also mild diffuse osseous demineralization and mild dextroscoliosis of the lumbar spine. The liver extends past the iliac crest, hepatomegaly. No dilated large or small bowel is seen. No suspicious calcifications in the abdomen. Numerous phleboliths in the pelvis. IMPRESSION: 1. Nonobstructive bowel gas pattern. 2. Incidentally noted hepatomegaly.
--- NOTE | 2019-10-05 17:04 | CT ---
EXAMINATION TYPE: CT abdomen pelvis w con DATE OF EXAM: 10/05/2019 COMPARISON: None HISTORY: LUQ pain on and off for a yr CT DLP: 915.4 mGycm CONTRAST: CT scan of the abdomen and pelvis is performed without Oral Contrast and with IV Contrast, patient in jected with 100 mL of Isovue 300. FINDINGS: LUNG BASES-: No visible nodule. No infiltrate. LIVER/GB: No calcified gallstones. No space occupying hepatic lesion. Biliary tree is of normal ca liber. PANCREAS: No inflammation. No distinct mass. SPLEEN: No splenic enlargement. No lesion seen. ADRENALS: No nodule. No thickening. KIDNEYS/BLADDER: No hydronephrosis. No nephrolithiasis. Left renal cysts noted upper pole. Extraren al pelvis bilateral kidneys. Urinary bladder grossly unremarkable. BOWEL: Normal appendix. Normal bowel caliber. No inflammation. GENITAL ORGANS: No gross abnormality. LYMPH NODES: No greater than 1cm abdominal or pelvic lymph nodes are appreciated. AORTA: No significant abnormality. OSSEOUS STRUCTURES: No significant abnormality is seen. OTHER: No significant additional abnormality is seen. IMPRESSION: 1. No acute process seen.
[2019-10-05 17:59] VITALS: BP 114/48; PULSE 67; RESP 20
== END 2019-10-05 18:09 | disposition home or self-care (01) ==
LOC: EC 13:46
DX: R10.12 Left upper quadrant pain (principal); I48.91 Unspecified atrial fibrillation; Z95.1 Presence of aortocoronary bypass graft; Z95.818 Presence of other cardiac implants and grafts; Z79.82 Long term (current) use of aspirin; Z79.899 Other long term (current) drug therapy; Z88.1 Allergy status to other antibiotic agents; Z91.040 Latex allergy status; Z88.8 Allergy status to other drugs, medicaments and biological substances; Z88.2 Allergy status to sulfonamides
CPT/HCPCS: 36415; 93005; 80053; 82150; 83690; 84484; 85025; 81003; 74018; 74177; 99285; 96374; 96375 ×2; 96361 ×2; J2270; J2405; C9113; Q9967

== ENCOUNTER 2020-05-25 10:51 | Emergency (ER) | payer OTHER ==
[2020-05-25 11:06] VITALS: TEMP 98.4
--- NOTE | 2020-05-25 11:38 | ED ---
General Adult HPI - General Chief complaint: Neck Pain/Injury Stated complaint: fell out of hammock/neck pain Time Seen by Provider: 05/25/20 11:09 Source: patient, RN notes reviewed, old records reviewed Mode of arrival: ambulatory Limitations: no limitations - History of Present Illness Initial comments: 60-year-old female presents status post fall with complaint of left shoulder pain and neck pain. Patient states she was sitting down in a hammock, fell backwards onto her neck. She states she did feel some crunching. No loss consciousness. There was minor head injury as well as injury to the left shoulder. Patient denies use of anticoagulants. Denies symptoms of numbness or tingling in her arms or legs. No other injury reported. - Related Data Home Medications Medication Instructions Recorded Confirmed Aspirin [Adult Low Dose Aspirin EC] 81 mg PO DAILY 11/02/18 11/02/18 Atorvastatin [Lipitor] 20 mg PO HS 11/02/18 11/02/18 Lisinopril [Zestril] 5 mg PO HS 11/02/18 11/02/18 Metoprolol Tartrate [Lopressor] 50 mg PO BID 11/02/18 11/02/18 Allergies Allergy/AdvReac Type Severity Reaction Status Date / Time cephalexin [Cephalexin] Allergy Rash/Hives Verified 05/25/20 11:06 erythromycin base Allergy Rash/Hives Verified 05/25/20 11:06 latex Allergy Rash/Hives Verified 05/25/20 11:06 methylprednisolone Allergy Rash/Hives Verified 05/25/20 11:06 [From Medrol] Sulfa (Sulfonamide Allergy Rash/Hives Verified 05/25/20 11:06 Antibiotics) sulfamethoxazole Allergy Rash/Hives Verified 05/25/20 11:06 [From Bactrim] trimethoprim [From Bactrim] Allergy Rash/Hives Verified 05/25/20 11:06 Review of Systems ROS Statement: Those systems with pertinent positive or pertinent negative responses have been documented in the HPI. ROS Other: All systems not noted in ROS Statement are negative. Past Medical History Past Medical History: Atrial Fibrillation Additional Past Medical History / Comment(s): THROMBOCYTOPENIA History of Any Multi-Drug Resistant Organisms: None Reported Past Surgical History: Cardiac Valve Replacement, Coronary Bypass/CABG, Heart Catheterization Additional Past Surgical History / Comment(s): RT SHOULDER ROT CUFF REPAIR AND MANIPULATION SURGERY OF RT SHOULDER, HX OF CLARA, MELECIO CARPAL TUNNEL,exp lap Past Anesthesia/Blood Transfusion Reactions: Motion Sickness Additional Past Anesthesia/Blood Transfusion Reaction / Comment(s): STATES "TAKES A LONG TIME TO WAKE UP FROM ANESTHESIA" Past Psychological History: No Psychological Hx Reported Smoking Status: Never smoker Past Alcohol Use History: None Reported Past Drug Use History: None Reported - Past Family History Father Family Medical History: Cancer Additional Family Medical History / Comment(s): SKIN CA General Exam Limitations: no limitations General appearance: alert, in no apparent distress Head exam: Present: atraumatic, normocephalic Eye exam: Present: normal appearance, PERRL ENT exam: Present: normal exam Neck exam: Present: tenderness. Absent: full ROM (Placed in a c-collar in triage) Respiratory exam: Present: normal lung sounds bilaterally. Absent: respiratory distress, wheezes Cardiovascular Exam: Present: regular rate. Absent: normal rhythm, bradycardia GI/Abdominal exam: Present: soft. Absent: distended, tenderness, guarding Extremities exam: Present: normal inspection, normal capillary refill, pedal edema Back exam: Present: normal inspection, full ROM. Absent: tenderness, paraspinal tenderness, vertebral tenderness Neurological exam: Present: alert, oriented X3, CN II-XII intact. Absent: motor sensory deficit Psychiatric exam: Present: normal affect, normal mood Skin exam: Present: warm, dry, intact Course Vital Signs 05/25/20 11:02 Temperature 98.4 F Pulse Rate 66 Respiratory 18 Rate Blood Pressure 175/74 O2 Sat by Pulse 99 Oximetry Medical Decision Making - Medical Decision Making 60-year-old female status post ground-level fall with neck pain. CT performed, showing degenerative changes at C5-C6 with no acute fracture or subluxation, no acute findings. CT brain negative for intracranial hemorrhage. I did x-ray the shoulder which is negative for acute bony abnormality. Will follow-up with her primary care physician. Disposition Clinical Impression: Strain of neck muscle, Cervical spine arthritis Disposition: HOME SELF-CARE Condition: Good Instructions (If sedation given, give patient instructions): Cervical Strain (ED) Is patient prescribed a controlled substance at d/c from ED?: No Referrals: Clara Chavez III, MD [Primary Care Provider] - 1-2 days Time of Disposition: 12:44
--- NOTE | 2020-05-25 11:58 | XR ---
EXAMINATION TYPE: XR shoulder complete LT DATE OF EXAM: 05/25/2020 COMPARISON: NONE HISTORY: Pain TECHNIQUE: Three views are submitted. FINDINGS: The osseous structures are intact. There is no acute fracture or dislocation. Diffuse osteopenia Th e AC joint is maintained. IMPRESSION: 1. AC joint arthropathy.
--- NOTE | 2020-05-25 12:34 | CT ---
EXAMINATION TYPE: CT brain cspine wo con DATE OF EXAM: 05/25/2020 COMPARISON: 03/01/2012 HISTORY: Fell out of the hammock CT DLP: 1358.5 mGycm Automated exposure control for dose reduction was used. TECHNIQUE: CT scan of the head and cervical spine are performed without contrast. FINDINGS: CT HEAD: Exam limited by artifact from the patient's c-collar. This distorts image of the posterior fossa. Mild generalized degenerative change. No diagnostic evidence of acute hemorrhage as visualized. No midline shift or mass effect. CERVICAL SPINE: Assessment spinal canal is nondiagnostic due to poor resolution and artifact. There is severe degenerative disc disease with spondylosis and spurring at C5-C6. Foraminal encroachm ent and possible canal stenosis noted. There is a 1 mm anterolisthesis of C3 on C4. There is multilev el facet arthropathy. No diagnostic evidence of acute fracture. Curvature of the cervical thoracic spine noted. Shotty adenopathy in the left carotid space. IMPRESSION: 1. There is no acute fracture or dislocation evident in the cervical spine. Severe degenerative disc disease C5-C6. 2. No acute intracranial hemorrhage, mass effect, or midline shift as seen given the limitation of th e exam.
[2020-05-25 13:06] VITALS: BP 161/70; PULSE 68; RESP 20
== END 2020-05-25 12:51 | disposition home or self-care (01) ==
LOC: EC 10:51
DX: S16.1XXA Strain of muscle, fascia and tendon at neck level, initial encounter (principal); M47.812 Spondylosis without myelopathy or radiculopathy, cervical region; I48.91 Unspecified atrial fibrillation; Z88.1 Allergy status to other antibiotic agents; Z88.2 Allergy status to sulfonamides; Z91.040 Latex allergy status; Z88.8 Allergy status to other drugs, medicaments and biological substances; Z79.82 Long term (current) use of aspirin; Z79.899 Other long term (current) drug therapy; Z95.1 Presence of aortocoronary bypass graft; Z95.2 Presence of prosthetic heart valve; W17.89XA Other fall from one level to another, initial encounter
CPT/HCPCS: 70450; 72125; 99284

== ENCOUNTER → 2020-07-18 | Outpatient (CLI) | payer SELFPAY ==
[2020-07-18 08:40] LABS: Basophils % (A) 1 %; Eosinophils # (A) 0.1 k/uL (0-0.7); Eosinophils % (A) 2 %; HCT 44.3 % (34.0-46.0); HGB 14.8 gm/dL (11.4-16.0); Lymphocytes # (A) 1.3 k/uL (1.0-4.8); Lymphocytes % (A) 29 %; MCH 30.6 pg (25.0-35.0); MCHC 33.3 g/dL (31.0-37.0); MCV 91.8 fL (80.0-100.0); Mean Platelet Volume 11.9; Monocytes # (A) 0.3 k/uL (0-1.0); Monocytes % (A) 6 %; Neutrophils # (A) 2.7 k/uL (1.3-7.7); Neutrophils % (A) 60 %; Platelet Count 103 k/uL (150-450); RBC 4.83 m/uL (3.80-5.40); RDW 12.8 % (11.5-15.5); WBC 4.5 k/uL (3.8-10.6)
[2020-07-18 08:52] LABS: Large Platelets Present
[2020-07-18 15:37] LABS: % Iron Saturation 25.96 (12.00-45.00); African American GFR (CKD) 107.6 (60.0-200.0); Albumin 4.4 g/dL (3.80-4.90); Albumin/Globulin Ratio 1.91 (1.60-3.17); Anion Gap 6.6 mmol/L (4.00-12.00); BUN/Creat Ratio 21.43 Ratio (12.00-20.00); Calcium 9.7 mg/dL (8.7-10.3); Carbon Dioxide 28.4 mmol/L (21.6-31.8); Chol/HDL Ratio 4.95; Globulin 2.3 g/dL (1.6-3.3); LDL Cholesterol,Calculated 134.2 mg/dL (0.0-131.0); Magnesium 1.9 mg/dL (1.5-2.4); Non-African American GFR(CKD) 92.9 (60.0-200.0); Potassium 4.1 mmol/L (3.5-5.5); Total Protein 6.7 g/dL (6.2-8.2); VLDL Calculation 31.8 mg/dL (5.00-40.00)
[2020-07-18 16:13] LABS: Ferritin 354.2 ng/mL (10.0-291.0)
== END | disposition home or self-care (01) ==
LOC: LABWHC1 07:32
PROVIDERS: ATTEND Family Medicine
DX: Z00.00 Encounter for general adult medical examination without abnormal findings (principal); R10.9 Unspecified abdominal pain; R16.0 Hepatomegaly, not elsewhere classified; R73.03 Prediabetes; R79.0 Abnormal level of blood mineral
CPT/HCPCS: 36415; 80053; 80061; 82550; 82728; 83036; 83540; 83550; 83615; 83690; 83735; 85025

== ENCOUNTER → 2020-09-18 | Outpatient (CLI) | payer SELFPAY | END | disposition home or self-care (01) | LOC: LABWHC1 15:23 | PROVIDERS: ATTEND Family Medicine | DX: R74.0 Nonspecific elevation of levels of transaminase and lactic acid dehydrogenase [LDH] (principal) | CPT/HCPCS: 36415; 83615 ==

== ENCOUNTER → 2020-10-02 | Outpatient (CLI) | payer SELFPAY ==
--- NOTE | 2020-10-02 10:15 | US ---
EXAMINATION TYPE: US abdomen complete DATE OF EXAM: 10/02/2020 COMPARISON: 09/08/2018 CLINICAL HISTORY: 60-year-old female ABD PAIN R10.11. Pt states generalized ABD pain on/off x 1 year TECHNIQUE: Multiple sonographic images of the abdomen are obtained. FINDINGS: EXAM MEASUREMENTS: Liver Length: 16.8 cm Gallbladder Wall: 0.2 cm CBD: 0.6 cm Spleen: 10.9 cm Right Kidney: 10.6 x 4.0 x 5.3 cm Left Kidney: 11.3 x 5.8 x 5.2 cm Pancreas: 2mm duct, upper limits of normal, otherwise appeared wnl Liver: Heterogeneous with increased echogenicity. No focal lesion seen. Gallbladder: wnl Evidence for sonographic Maldonado's sign: No CBD: wnl Spleen: wnl Right Kidney: No hydronephrosis. Possible 5mm calculus Left Kidney: Cyst upper pole= 1.5 x 0.9 x 1.3 cm. No hydronephrosis. Upper IVC: wnl Abd Aorta: wnl IMPRESSION: 1. Slightly heterogeneous and echogenic appearance to the liver. Correlate for underlying hepatic lorrie atosis or other nonspecific hepatocellular disease. 2. No gallstones or biliary ductal dilatation. 3. A 5 mm nonobstructive right renal calculus.
== END | disposition home or self-care (01) ==
LOC: RADUSWWP 08:41
PROVIDERS: ATTEND Family Medicine
DX: N20.0 Calculus of kidney (principal)
CPT/HCPCS: 76700

== ENCOUNTER → 2021-01-05 | Outpatient (CLI) | payer SELFPAY ==
--- NOTE | 2021-01-05 16:09 | MR ---
EXAMINATION TYPE: MR abdomen wo/w con DATE OF EXAM: 01/05/2021 COMPARISON: CT abdomen pelvis 10/05/2019 HISTORY: Right renal calculus, abdominal pain/cramping CONTRAST: Standard multiplanar, multisequence MRI departmental protocol utilizing 7 mL intravenous Gadavist sun olinium contrast. Liver has normal size and contour. I see no focal defect. Gallbladder appears normal. Common bile jennifer t appears normal. Intrahepatic bile ducts appear normal. The spleen is intact. Pancreatic duct appear s normal. Pancreas appears normal. The stomach is intact. There is no evidence of pleural effusion. T here is no sign of pericardial effusion. There is no adrenal mass. Kidneys have normal size. There is no hydronephrosis. There is 1.5 cm corti emmett cyst upper pole left kidney. There are smaller other renal cysts. There is no sign of retroperito buzz adenopathy. There is no ascites. The contrast images show no pathologic enhancement. There is no rmal enhancement of the portal venous system. IMPRESSION: Negative MR scan of the abdomen. No adverse change compared to old CT scan. No evidence of renal obst ruction.
== END | disposition home or self-care (01) ==
LOC: RADMRIMAIN 09:33
PROVIDERS: ATTEND Family Medicine
DX: N20.0 Calculus of kidney (principal)
CPT/HCPCS: 74183; A9585

== ENCOUNTER → 2021-01-16 | Outpatient (CLI) | payer SELFPAY ==
--- NOTE | 2021-01-16 22:56 | MR ---
EXAMINATION TYPE: MR brain and iac wo/w con DATE OF EXAM: 01/16/2021 COMPARISON: None HISTORY: Diplopia, ear pain CONTRAST: Performed utilizing 7 mL intravenous Gadavist gadolinium contrast. TECHNIQUE: Multiplanar, multiecho imaging on a 3.0 Ivory magnet is performed through the brain. Atte ntion is paid to the internal auditory canals with thin section imaging. Postcontrast imaging is per formed through the internal auditory canals. FINDINGS:Craniovertebral junction is normal. The pituitary is normal. Diffusion-weighted imaging is performed. No suspicious hyperintensity is present to suggest an acute intracranial infarct or acute ischemic area. Signal within the brain is a couple of nonspecific punctate white matter changes not out of proportio n to the patient age. Microvascular ischemic change could be considered within the differential.. Thin section imaging is performed through the internal auditory canals and cerebellar pontine angles. No cerebellar pontine angle masses are evident. The internal auditory canals appear normal without expansion or erosion. Postcontrast imaging was performed. No suspicious enhancement is evident within the internal audito ry canals or the included portions of the brain. IMPRESSIONS: 1. Normal internal auditory canals. 2. Minimal white matter changes not out of proportion patient age. Consider microvascular ischemic ch dionna within the differential.
== END | disposition home or self-care (01) ==
LOC: RADMRIMAIN 06:06
PROVIDERS: ATTEND Family Medicine
DX: R90.82 White matter disease, unspecified (principal)
CPT/HCPCS: 70553; A9585

== ENCOUNTER → 2021-01-29 | Outpatient (CLI) | payer SELFPAY ==
[2021-01-29 10:48] LABS: Appearance,Urine Clear (Clear); Bilirubin,Urine Negative (Negative); Blood,Urine Negative (Negative); Color,Urine Yellow; Glucose,Urine (UA) Negative (Negative); Ketones,Urine Negative (Negative); Leukocyte Esterase,Urine Small (Negative); Mucus,Urine Occasional /hpf; Nitrite,Urine Negative (Negative); Protein,Urine Negative (Negative); RBC,Urine 1 /hpf (0-5); Specific Gravity,Urine 1.022 (1.001-1.035); Squamous Epithelial Cell,Urine 2 /hpf (0-4); Urobilinogen,Urine <2.0 mg/dL (<2.0); WBC,Urine 1 /hpf (0-5)
[2021-01-29 16:55] LABS: Basophils # (A) 0.03 X 10*3/uL (0.00-0.10); Basophils % (A) 0.8 %; Eosinophils # (A) 0.11 X 10*3/uL (0.04-0.35); Eosinophils % (A) 2.9 %; HCT 42.9 % (37.2-46.3); HGB 14.6 g/dL (12.0-15.0); Lymphocytes # (A) 1.13 X 10*3/uL (0.90-5.00); Lymphocytes % (A) 29.5 %; MCH 31.1 pg (27.0-32.0); MCV 91.5 fL (80.0-97.0); Mean Platelet Volume 14.2 fL (9.5-12.2); Monocytes # (A) 0.32 X 10*3/uL (0.20-1.00); Monocytes % (A) 8.4 %; Neutrophils # (A) 2.22 X 10*3/uL (1.80-7.70); Neutrophils % (A) 57.9 %; Platelet Count 105 X 10*3/uL (140-440); RBC 4.69 X 10*6/uL (4.10-5.20); RDW 12.2 % (11.5-14.5); WBC 3.83 X 10*3/uL (4.50-10.00)
[2021-01-29 21:57] LABS: % Iron Saturation 42.38 (12.00-45.00); African American GFR (CKD) 91.6 (60.0-200.0); Albumin 4.2 g/dL (3.80-4.90); Albumin/Globulin Ratio 1.5 (1.60-3.17); Anion Gap 10.1 mmol/L (4.00-12.00); Carbon Dioxide 27.9 mmol/L (21.6-31.8); Globulin 2.8 g/dL (1.6-3.3); Potassium 4.2 mmol/L (3.5-5.5); Total Bilirubin 0.9 mg/dL (0.3-1.2)
[2021-01-29 21:58] LABS: Bilirubin, Conjugated 0.2 mg/dL (0.20-0.40); Bilirubin,Unconjugated 0.7 mg/dL; Chol/HDL Ratio 4.61; LDL Cholesterol,Calculated 104.8 mg/dL (0.0-131.0); VLDL Calculation 32.2 mg/dL (5.00-40.00)
[2021-01-30 17:48] LABS: Ferritin 431.8 ng/mL (10.0-291.0)
== END | disposition home or self-care (01) ==
LOC: LABWHC1 09:40
PROVIDERS: ATTEND Family Medicine
DX: E78.2 Mixed hyperlipidemia (principal); D69.3 Immune thrombocytopenic purpura; M06.4 Inflammatory polyarthropathy; G60.9 Hereditary and idiopathic neuropathy, unspecified; I25.10 Atherosclerotic heart disease of native coronary artery without angina pectoris; R10.9 Unspecified abdominal pain
CPT/HCPCS: 36415; 80053; 80061; 81001; 82248; 82550; 82728; 82977; 83540; 83550; 83615; 84443; 85025; 86038; 86431

== ENCOUNTER → 2023-03-27 | Outpatient (CLI) | payer MEDICARE ==
--- NOTE | 2023-03-27 10:20 | BD ---
EXAMINATION TYPE: Axial Bone Density DATE OF EXAM: 03/27/2023 CLINICAL HISTORY: 63 years old Female. ICD-10 CODE: Z78.0 ASYMPTOMATIC MENOPAUSAL STATE Height: 57 Weight: 146 FRAX RISK QUESTIONS: Secondary Osteoporosis: yes 5. Chronic liver disease: fatty liver disease RISK FACTORS HISTORY OF: Postmenopausal woman: yes, at age 48. Hyperparathyroidism: no Adrenal Insufficiency: no MEDICATIONS: Additional Medications: bp meds, multivitamin Additional History: hypertension, hypercalcemia, osteoarthritis, hyperferritinemia EXAM MEASUREMENTS: Bone mineral densitometry was performed using the [employer] System. Bone mineral density as measured about the Lumbar spine is: ----- L1-L4(G/cm2): 1.154 T Score Values are as follows: ----- L1: 0.4 ----- L2: -0.3 ----- L3: -0.2 ----- L4: -0.7 ----- L1-L4: -0.2 Z Score Values are as follows: ----- L1: 1.9 ----- L2: 1.3 ----- L3: 1.3 ----- L4: 0.8 ----- L1-L4: 1.3 Bone mineral density is a baseline study. Bone mineral density about the R hip (g/cm2): 1.014 Bone mineral density about the L hip (g/cm2): 1.139 T Score values are as follows: -----R Neck: -0.7 -----L Neck: -1.3 -----R Total: 0.0 -----L Total: 1.0 Z Score values are as follows: -----R Neck: 0.2 -----L Neck: 0.7 -----R Total: 1.2 -----L Total: 2.2 Bone mineral density is a baseline study. FRAX%s: The graph provided illustrates a 8.0% chance for a major osteoporotic fx and a 0.7% chance fo r the hips probability for fx in 10 years time. IMPRESSION: Normal (Values between +1 and -1 indicate normal bone mass). Consider repeating this study in 5 year s or sooner if there is some new clinical indication. NOTE: T-SCORE=SD OF THE YOUNG ADULT MEAN.
--- NOTE | 2023-03-30 07:05 | MM ---
Reason for Exam: Screening (asymptomatic). Last mammogram was performed 6 year(s) and 10 month(s) ago. Patient History: Menarche at age 11. First Full-Term at age 21. Postmenopausal. Maternal grandmother had breast cancer, age 50. Maternal aunt had breast cancer, age 40. Risk Values: Karyn 5 year model risk: 1.5%. NCI Lifetime model risk: 5.6%. Prior Study Comparison: 11/14/2011 Bilateral Screening Mammogram, [facility]. 04/19/2015 Bilateral Diagnostic Mammogram, [facility]. 05/14/2016 Bilateral Diagnostic Mammogram, [facility]. Tissue Density: There are scattered fibroglandular densities. Findings: Analyzed By CAD. There are small benign-appearing round and linear calcifications bilaterally redemonstrated which have increased in number from prior mammograms. There is no suspicious new focal group of microcalcifications or new suspicious mass in either breast. Overall Assessment: Benign, BI-RAD 2 Management: Screening Mammogram of both breasts in 1 year. . Patient should continue monthly self-breast exams. A clinical breast exam by your physician is recommended on an annual basis. This exam should not preclude additional follow-up of suspicious palpable abnormalities. Note on Karyn scores and lifetime risk: 1. A Karyn score greater than 3% is considered moderate risk. If this is the case, consider specialist referral to assess eligibility for a risk reducing agent. 2. If overall lifetime risk for the development of breast cancer is 20% or higher, the patient may qualify for future screening with alternating mammogram and breast MRI. Electronically signed and approved by: Carmine Mendoza M.D.
== END | disposition home or self-care (01) ==
LOC: RADMAMWWP 08:10
PROVIDERS: ATTEND Family Medicine
DX: Z12.31 Encounter for screening mammogram for malignant neoplasm of breast (principal); E83.52 Hypercalcemia; Z78.0 Asymptomatic menopausal state; Z80.3 Family history of malignant neoplasm of breast
CPT/HCPCS: 77063; 77067; 77080

== ENCOUNTER → 2023-09-18 | Outpatient (CLI) | payer MEDICARE ==
[2023-09-18 09:13] VITALS: BP 139/60; PULSE 60; RESP 17; TEMP 97.8
--- NOTE | 2023-09-18 09:19 | P.GSHP ---
History of Present Illness H&P Date: 09/18/23 Chief Complaint: Left breast lump Mirella is a 63-year-old white female seen in consultation for Dr. Jong Ortiz regarding a left breast lump. She underwent a bilateral mammogram on which was benign BIRAD 2. She states she felt a lump in her breast in March 2023. The lump is a ridge under her left breast. It has not changed. It is tender at times. She does not feel anything on the right side. She had a coronary artery bypass graft 2017 and had a valve replaced as well, they did a left internal mammary artery graft. She then had a foreign body removed several months later. It was a pacer wire. She has not had any specific surgery on her breast. She is not complaining of any recent trauma or infection of the breast. Caffeine: none nicotine: none chocolate: Weakly control pills: none; IUD in the s hormones: none Note Dr. Jong Ortiz 08-06-23 reviewed Family History: Maternal grandmother: Breast and uterine cancer from this Hormonal History: menarche: 13 breast fed: yes, age at first : 19 menopause: 49 Surgical History: Coronary artery bypass graft with aortic valve replacement Removal of foreign body pacer wires carpel tunnel rotater cuff repair tonsil Medical History: ITP; since 1993 ferritin 591 Social History: nicotine: none alcohol: none drugs: none - Constitutional Constitutional: Denies chills, Denies fever - EENT Eyes: bilateral pain (when looks down), denies blurred vision Ears: deny: decreased hearing, tinnitus Ears, nose, mouth and throat: Reports headache, Denies sore throat - Breasts Breasts: bilateral: as per HPI - Cardiovascular Cardiovascular: Reports as per HPI - Respiratory Respiratory: Denies cough, Denies 7 - Gastrointestinal Gastrointestinal: Denies abdominal pain, Denies diarrhea, Denies nausea, Denies vomiting - Genitourinary (Female) Genitourinary: Denies dysuria, Denies hematuria - Menstruation Menstruation: Reports postmenopausal - Musculoskeletal Musculoskeletal: Denies myalgias - Integumentary Integumentary: Denies pruritus, Denies rash - Neurological Neurological: Denies numbness, Denies weakness - Psychiatric Psychiatric: Denies anxiety, Denies depression - Endocrine Endocrine: Denies fatigue, Denies weight change - Hematologic/Lymphatic Comment: takes baby aspirin daily - Allergic/Immunologic Allergic/Immunologic: Reports as per HPI Past Medical History Past Medical History: Atrial Fibrillation Additional Past Medical History / Comment(s): THROMBOCYTOPENIA History of Any Multi-Drug Resistant Organisms: None Reported Past Surgical History: Cardiac Valve Replacement, Coronary Bypass/CABG, Heart Catheterization Additional Past Surgical History / Comment(s): RT SHOULDER ROT CUFF REPAIR AND MANIPULATION SURGERY OF RT SHOULDER, HX OF CLARA, MELECIO CARPAL TUNNEL,exp lap Past Anesthesia/Blood Transfusion Reactions: Motion Sickness Additional Past Anesthesia/Blood Transfusion Reaction / Comment(s): STATES "TAKES A LONG TIME TO WAKE UP FROM ANESTHESIA" Past Psychological History: No Psychological Hx Reported Past Alcohol Use History: None Reported Past Drug Use History: None Reported - Past Family History Father Family Medical History: Cancer Additional Family Medical History / Comment(s): SKIN CA Medications and Allergies Home Medications Medication Instructions Recorded Confirmed Type Aspirin [Adult Low Dose Aspirin EC] 81 mg PO DAILY 11/02/18 09/18/23 History Beet Powder 1 tab PO DAILY 04/03/23 09/18/23 History Cholecalciferol [Vitamin D3 (25 25 mcg PO DAILY 04/03/23 09/18/23 History Mcg = 1000 Iu)] Folate 1 tab PO DAILY 04/03/23 09/18/23 History Magnesium 200 mg PO DAILY 04/03/23 09/18/23 History [place]-3/Dha/Epa/Fish Oil [Fish Oil 1 each PO DAILY 04/03/23 09/18/23 History 1,000 mg Softgel] Vitamin B Complex 1 each PO DAILY 04/03/23 09/18/23 History Vitamin E (Dl,Tocopheryl Acet) 1 tab PO DAILY 04/03/23 09/18/23 History [Vitamin E (100 Iu = 45MG)] Zinc Gluconate [Zinc] 50 mg PO DAILY 04/03/23 09/18/23 History carvediloL [Coreg] 3.125 mg PO DAILY 09/18/23 09/18/23 History lisinopriL [Zestril] 5 mg PO DAILY 09/18/23 09/18/23 History Allergies Allergy/AdvReac Type Severity Reaction Status Date / Time cephalexin [Cephalexin] Allergy Rash/Hives Verified 09/18/23 08:53 erythromycin base Allergy Rash/Hives Verified 09/18/23 08:53 fluconazole Allergy facial Verified 09/18/23 08:53 flushing latex Allergy Rash/Hives Verified 09/18/23 08:53 methylprednisolone Allergy Rash/Hives Verified 09/18/23 08:53 [From Medrol] Sulfa (Sulfonamide Allergy Rash/Hives Verified 09/18/23 08:53 Antibiotics) sulfamethoxazole Allergy Rash/Hives Verified 09/18/23 08:53 [From Bactrim] trimethoprim [From Bactrim] Allergy Rash/Hives Verified 09/18/23 08:53 Surgical - Exam - General no distress - Eyes normal ocular movement - ENT no hearing loss - Neck trachea midline - Respiratory normal respiratory effort, clear to auscultation - Cardiovascular Heart Sounds: normal: S1, S2 - Abdomen Abdomen: soft, non tender, no guarding, no rigid, no rebound - Integumentary normal turgor, well healed scars from CABG surgery - Neurologic no disoriented, no combative - Musculoskeletal normal gait - Psychiatric oriented to time, oriented to person, oriented to place, speech is normal, memory intact Breast Exam: BRA: 38C inspection: Bilateral grade 2/3 ptosis Palpation: Right breast: Multi-positional exam fibrocystic changes, no dominant masses or nodules of concern Right axilla: No adenopathy of concern Left breast: No dominant masses or nodules of concern, the patient is laying down in the lower inner quadrant there is some minimal retraction of the skin but no mass at this site Left axilla: No adenopathy of concern Results Patient complaining of some left breast lower inner quadrant fullness and tenderness; nothing discrete noted on examination today nothing on her mammogram from February 2023 Assessment and Plan Assessment: Impression: Patient with new left lower inner quadrant breast tenderness and fullness nothing discrete on examination History of coronary artery bypass graft and aortic valve replacement Idiopathic thrombocytopenia purpura High ferritin Plan: Ultrasound area of concern Follow-up after ultrasound At this time there is nothing specific which would warrant interventional biopsy Cc: Dr. Jong Ortiz
== END ==
LOC: WWCWWP 08:38
PROVIDERS: ATTEND Surgery
DX: D69.3 Immune thrombocytopenic purpura (principal); I48.91 Unspecified atrial fibrillation; N64.4 Mastodynia; Z79.899 Other long term (current) drug therapy; Z88.1 Allergy status to other antibiotic agents; Z88.2 Allergy status to sulfonamides; Z88.3 Allergy status to other anti-infective agents; Z91.040 Latex allergy status; Z95.1 Presence of aortocoronary bypass graft; Z95.2 Presence of prosthetic heart valve; Z88.8 Allergy status to other drugs, medicaments and biological substances; Z80.3 Family history of malignant neoplasm of breast; Z79.82 Long term (current) use of aspirin

== ENCOUNTER → 2023-09-25 | Outpatient (CLI) | payer MEDICARE ==
--- NOTE | 2023-09-25 13:52 | USB ---
Reason for Exam: Clinical finding. Patient History: Menarche at age 11. First Full-Term at age 21. Postmenopausal. Maternal grandmother had breast cancer, age 50. Maternal aunt had breast cancer, age 40. Risk Values: Karyn 5 year model risk: 1.5%. NCI Lifetime model risk: 5.6%. Technique: Method: Targeted. Prior Study Comparison: 04/19/2015 Bilateral Diagnostic Mammogram, [facility]. 05/14/2016 Bilateral Diagnostic Mammogram, [facility]. 03/27/2023 Bilateral MG 3D screening mammo w/cad, [facility]. Findings: The lower inner quadrant of the left breast, the axilla of the left breast and the retroareolar of the left breast were scanned. Targeted ultrasound of the left breast from 6-9 o'clock was performed with additional evaluation of the nipple and axilla. No solid or cystic lesion identified. Overall Assessment: Negative, BI-RAD 1 Management: Screening Mammogram of both breasts in 6 months. A clinical breast exam by your physician is recommended on an annual basis and results should be correlated with mammographic findings. This exam should not preclude additional follow-up of suspicious palpable abnormalities. Results were given to the patient verbally at the time of exam. Electronically signed and approved by: Ruddy Bone D.O.
== END | disposition home or self-care (01) ==
LOC: RADUSWWP 13:13
PROVIDERS: ATTEND Surgery
DX: N64.4 Mastodynia (principal); Z78.0 Asymptomatic menopausal state; Z80.3 Family history of malignant neoplasm of breast

== ENCOUNTER 2023-10-06 10:08 | Day surgery (SDC) | payer MEDICARE ==
[2023-10-02 11:50] VITALS: BMI 29.2
[~2023-10-06 10:08] MED LIST changes: -CLINDAMYCIN 900 MG in DEXTROSE 5% IN WATER 50 ML IVPB ONE; -HYDROmorphone 0.5 MG/0.5 ML SYRINGE IVP PRN; +LIDOCAINE 1% (10MG/ML) FOR IV START INTRADERMA PRN; -MORPHINE SULFATE 2 MG/ML SYRINGE IV PRN
[2023-10-06 11:08] VITALS: RESP 16; TEMP 97.5
[2023-10-06] MEDS ORDERED: PROPOFOL 10 MG/ML 20 ML VIAL IV ONE (11:52)
--- NOTE | 2023-10-06 12:23 | P.PCN ---
Date of Procedure: 10/06/23 Procedure(s) Performed: BRIEF HISTORY: Patient is a 63-year-old pleasant female scheduled for an elective colonoscopy as a part of evaluation of intermittent rectal bleeding for the last 6 months duration. PROCEDURE PERFORMED: Colonoscopy with snare polypectomy. PREOPERATIVE DIAGNOSIS: Rectal bleeding. IV sedation per Anesthesia. PROCEDURE: After informed consent was obtained, the patient, was brought into the endoscopy unit. IV sedation was administered by Anesthesia under continuous monitoring. Digital rectal examination was normal. Initially the Olympus CF-160 flexible video colonoscope was then inserted in the rectum, gradually advanced into the cecum without any difficulty. Careful examination was performed as the scope was gradually being withdrawn. Ileocecal valve and the appendiceal orifice were visualized and appeared normal. Prep was excellent. Mucosa of the cecum, ascending colon appeared normal. In the proximal COLON there was a 6 mm polyp that was removed by cold snare polypectomy. Rest of, transverse colon, descending colon, sigmoid colon, and rectum appeared normal. Retroflexion was performed in the rectum and grade 2 internal hemorrhoids were seen. The patient tolerated the procedure well. IMPRESSION: 6 mm broad-based transverse colon polyp status post polypectomy Grade 2 internal hemorrhoids RECOMMENDATIONS: Findings of this examination were discussed with the patient as well as her family. She was advised to follow with the biopsy results. If the biopsy reveals adenoma she can have a repeat colonoscopy in 5 years. In the meantime recommend any high-fiber diet and take fiber supplements a regular basis.
[2023-10-06 13:09] VITALS: BP 140/55; PULSE 54
== END 2023-10-06 13:12 | disposition home or self-care (01) ==
LOC: ORWHC2ENDO 10:08
PROVIDERS: ATTEND Internal Medicine Gastroenterology
DX: K63.5 Polyp of colon (principal); K62.5 Hemorrhage of anus and rectum; I25.10 Atherosclerotic heart disease of native coronary artery without angina pectoris; I10 Essential (primary) hypertension; I48.91 Unspecified atrial fibrillation; Z79.82 Long term (current) use of aspirin; Z88.8 Allergy status to other drugs, medicaments and biological substances; Z88.1 Allergy status to other antibiotic agents; Z88.2 Allergy status to sulfonamides; Z98.890 Other specified postprocedural states; Z79.899 Other long term (current) drug therapy
CPT/HCPCS: 88305; 45385; J2704

== ENCOUNTER → 2024-05-04 | Outpatient (CLI) | payer MEDICARE ==
--- NOTE | 2024-05-04 19:00 | MM ---
Reason for Exam: Screening (asymptomatic). Last mammogram was performed 1 year(s) and 2 month(s) ago. Patient History: Menarche at age 11. First Full-Term at age 21. Postmenopausal. Patient has history of breast feeding. Maternal grandmother had breast cancer, age 50. Paternal aunt had breast cancer, age 40. Risk Values: Karyn 5 year model risk: 1.5%. NCI Lifetime model risk: 5.4%. Prior Study Comparison: 04/19/2015 Bilateral Diagnostic Mammogram, [facility]. 05/14/2016 Bilateral Diagnostic Mammogram, [facility]. 03/27/2023 Bilateral MG 3D screening mammo w/cad, [facility]. Tissue Density: There are scattered areas of fibroglandular density. Findings: Analyzed By CAD. Benign bilateral secretory calcifications. There is no suspicious group of microcalcifications or new suspicious mass in either breast. Overall Assessment: Benign, BI-RAD 2 Management: Screening Mammogram of both breasts in 1 year. . Patient should continue monthly self-breast exams. A clinical breast exam by your physician is recommended on an annual basis. This exam should not preclude additional follow-up of suspicious palpable abnormalities. Note on Karyn scores and lifetime risk: 1. A Karyn score greater than 3% is considered moderate risk. If this is the case, consider specialist referral to assess eligibility for a risk reducing agent. 2. If overall lifetime risk for the development of breast cancer is 20% or higher, the patient may qualify for future screening with alternating mammogram and breast MRI. Electronically signed and approved by: Mary Ellen Cunningham M.D. Radiologist
== END | disposition home or self-care (01) ==
LOC: RADMAMWWP 09:00
PROVIDERS: ATTEND Family Medicine
DX: Z12.31 Encounter for screening mammogram for malignant neoplasm of breast (principal); Z80.3 Family history of malignant neoplasm of breast; Z78.0 Asymptomatic menopausal state
CPT/HCPCS: 77067

== ENCOUNTER → 2024-11-17 | Outpatient (CLI) | payer MEDICARE ==
[2024-11-17 15:11] LABS: Chol/HDL Ratio 4.65 Ratio; LDL Cholesterol,Calculated 165.9 mg/dL (0.0-131.0)
== END | disposition home or self-care (01) ==
LOC: LABWHC1 09:19
PROVIDERS: ATTEND Internal Medicine Cardiovascular Disease
DX: E78.2 Mixed hyperlipidemia (principal)
CPT/HCPCS: 36415; 80061